=== PATIENT | female | born 1975 ===

== ENCOUNTER 2018-05-07 18:59 | Emergency (ER) | payer OTHER ==
[~2018-05-07 18:59] MED LIST: CEPH-13 PO; DOCU-416 PO; DOXY-181 PO; FLU150 PO; HYDR-3083 PO; LOR5/325 PO; OMEP-218 PO; ONDA-2 PO; OXYC-865 PO; PRE20 PO; PRED20TA6 PO; [UNRECOGNIZED DRUG - CODE] PO
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
[2018-05-07 19:30] VITALS: BP 126/87
--- NOTE | 2018-05-07 20:09 | RADIOLOGY IMAGING REPORT ---
FACILITY: [facility] - [place] PATIENT NAME: Yoly Kay : 1975 MR: [id number] V: [id number] EXAM DATE: ORDERING PHYSICIAN: JOSE GUADALUPE VILLATORO TECHNOLOGIST: Location: [facility] [place] Patient: Yoly Kay : 1975 Visit/Account:[id number] Date of Sevice: 05/07/2018 INDICATION: fall Hx. DATE: 05/07/2018 8:03 PM. TECHNIQUE: FEMUR RIGHT COMPARISON: Knee radiographs October 04, 2009 FINDINGS: The femoral manny is intact. There are two proximal fixation screws and one distal screw. T he proximal femoral shaft fracture has remodeled. Acetabular plate and screw constructs are noted. There is no evidence of acute fracture. The femoral head is largely obscured by the hardware. IMPRESSION: No evidence of acute femoral fracture. Report Dictated By: Delfino Menendez MD at 05/07/2018 8:03 PM Report E-Signed By: Delfino Menendez MD at 05/07/2018 8:05 PM WSN:[email or web address]
--- NOTE | 2018-05-07 20:11 | RADIOLOGY IMAGING REPORT ---
FACILITY: [facility] - [place] PATIENT NAME: Yoly Kay : 1975 MR: [id number] V: [id number] EXAM DATE: ORDERING PHYSICIAN: JOSE GUADALUPE VILLATORO TECHNOLOGIST: Location: [facility] Patient: Yoly Kay : 1975 Visit/Account:[id number] Date of Sevice: 05/07/2018 INDICATION: fall Hx. DATE: 05/07/2018 8:05 PM. TECHNIQUE: ELBOW 3 VIEWS RIGHT COMPARISON: None FINDINGS: Olecranon plate and screw construct appears intact. No evidence of hardware failure or loo sening. Alignment is anatomic. Multiple well-corticated fragments about the elbow are from old inju ry. There may be a small elbow joint effusion. IMPRESSION: Suspected small effusion but no clear evidence of acute osseous abnormality. Report Dictated By: Delfino Menendez MD at 05/07/2018 8:05 PM Report E-Signed By: Delfino Menendez MD at 05/07/2018 8:07 PM WSN:[email or web address]
== END 2018-05-07 19:54 | disposition home or self-care (01) ==
LOC: ER 19:25
DX: S80.01XA Contusion of right knee, initial encounter (principal); S60.511A Abrasion of right hand, initial encounter; W00.0XXA Fall on same level due to ice and snow, initial encounter; Z96.621 Presence of right artificial elbow joint; Z96.641 Presence of right artificial hip joint
CPT/HCPCS: 99284

== ENCOUNTER 2018-06-12 11:34 | Emergency (ER) | payer BC, OTHER ==
[2018-06-12 11:39] VITALS: BP 135/88
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
[2018-06-12] MEDS ORDERED: ACETAMINOPHEN 325 MG TAB PO ONE (11:55)
--- NOTE | 2018-06-12 12:34 | RADIOLOGY IMAGING REPORT ---
[facility] PATIENT NAME: Yoly Kay : 1975 MR: [id number] V: [id number] EXAM DATE: ORDERING PHYSICIAN: TERRA PATEL TECHNOLOGIST: Location: [facility] - [place] Patient: Yoly Kay : 1975 Visit/Account:[id number] Date of Sevice: 06/12/2018 Technique: KNEE 3 VIEW RIGHT HISTORY: fall trauma Comparison studies: None FINDINGS: There is partial visualization of an intramedullary manny and distal locking screws traversin g the right femur. The alignment of the right knee is maintained. No acute fracture. No knee joint effusion. IMPRESSION: 1. No acute osseous process. Report Dictated By: Ricky Lockett DO at 06/12/2018 12:29 PM Report E-Signed By: Ricky Lockett DO at 06/12/2018 12:30 PM WSN:[email or web address]
== END 2018-06-12 13:10 | disposition home or self-care (01) ==
LOC: ER 12:19
DX: S80.01XA Contusion of right knee, initial encounter (principal); W18.30XA Fall on same level, unspecified, initial encounter
CPT/HCPCS: 99283